=== PATIENT | female | born 2000 | race Caucasian/White ===

== ENCOUNTER 2020-05-09 21:11 | Emergency (ER) | payer OTHER ==
[2020-05-09] MEDS ORDERED: DEXAMETHASONE SOD PHOSPHATE 10 MG/1 ML VIAL PO ONE (21:25)
[2020-05-09] MEDS ORDERED: DEXAMETHASONE SOD PHOSPHATE 10 MG/1 ML VIAL ONE (21:28)
[2020-05-09] MEDS ORDERED: DEXAMETHASONE SOD PHOSPHATE 10 MG/1 ML VIAL IM ONE (21:36)
[2020-05-09 21:44] VITALS: BMI 22.1
[2020-05-10 00:30] VITALS: BP 123/81; PULSE 94; TEMP 99.1
== END 2020-05-10 00:36 | disposition home or self-care (01) ==
LOC: FER 21:11
PROC: 3E023GC Introduction of Other Therapeutic Substance into Muscle, Percutaneous Approach (ICD-10-PCS; principal; 2020-05-09)
DX: T78.40XA Allergy, unspecified, initial encounter (principal)
CPT/HCPCS: 99284-25; J1100

== ENCOUNTER 2023-07-29 17:49 | Emergency (ER) | payer BC, OTHER ==
[2023-07-29 17:56] VITALS: BP 115/78; PULSE 85; RESP 17; TEMP 98.5; BMI 22.8
== END 2023-07-29 19:52 | disposition home or self-care (01) ==
LOC: FER 17:49
PROC: 0HQGXZZ Repair Left Hand Skin, External Approach (ICD-10-PCS; principal; 2023-07-29)
DX: S61.012A Laceration without foreign body of left thumb without damage to nail, initial encounter (principal); W26.0XXA Contact with knife, initial encounter
CPT/HCPCS: 99282-25

== ENCOUNTER 2023-08-16 17:16 | Emergency (ER) | payer BC ==
[2023-08-16 17:32] VITALS: BP 128/77; PULSE 77; RESP 20; TEMP 98; BMI 22.8
== END 2023-08-16 17:37 | disposition home or self-care (01) ==
LOC: FER 17:16
DX: Z48.02 Encounter for removal of sutures (principal)
CPT/HCPCS: 99281-25